=== PATIENT | male | born 1970 | race African-American/Black ===

== ENCOUNTER 2022-04-18 04:17 | Day surgery (SDC) | payer OTHER ==
[2022-04-13 13:37] VITALS: BMI 32.3
[2022-04-18] MEDS ORDERED: MIDAZOLAM HCL 2 MG/2 ML SINGLE DOSE VIAL ONE (13:24)
[2022-04-18] MEDS ORDERED: FENTANYL CITRATE/PF 50 MCG/ML VIAL ONE (13:24)
[2022-04-18 14:13] VITALS: RESP 18
[2022-04-18 14:32] VITALS: BP 116/72; PULSE 71; TEMP 98.1
== END 2022-04-18 15:03 | disposition home or self-care (01) ==
LOC: JASU-SURG 04:17
PROVIDERS: ATTEND Urology
PROC: 0TF4XZZ Fragmentation in Left Kidney Pelvis, External Approach (ICD-10-PCS; principal; 2022-04-18 12:30)
DX: N20.0 Calculus of kidney (principal)